=== PATIENT | female | born 1970 | race Caucasian/White ===

== ENCOUNTER 2024-02-16 17:00 | Emergency (ER) | payer SELFPAY ==
[2024-02-16] MEDS ORDERED: HYDROcodone/Acetaminophen 5/325 mg Tablet ONE (18:05)
== END 2024-02-16 18:12 | disposition home or self-care (01) ==
LOC: CSHERS 17:00
DX: K08.89 Other specified disorders of teeth and supporting structures (principal); Z76.0 Encounter for issue of repeat prescription; I10 Essential (primary) hypertension
CPT/HCPCS: 99282